=== PATIENT | female | born 1995 | race Caucasian/White ===

== ENCOUNTER 2020-01-12 13:22 | Emergency (ER) | payer OTHER ==
[~2020-01-12] VITALS: Ht 177.8 cm; Wt 81.6 kg
[2020-01-12 13:30] VITALS: BP 148/83
--- NOTE | 2020-01-12 13:41 | NUR ---
PT SEEN AND EXAMINED BY .
[2020-01-12] MEDS ORDERED: IBUPROFEN 600 MG TABLET PO ONE ×2 (14:23→14:30)
--- NOTE | 2020-01-12 14:26 | NUR ---
JEANNE BRIGGS AT BEDSIDE FOR WOUND DRESSING.
--- NOTE | 2020-01-12 14:29 | NUR ---
Patient discharged to home in stable condition. Written and verbal after care instructions given. Patient verbalizes understanding of instruction.
== END 2020-01-12 14:30 | disposition home or self-care (01) ==
LOC: ER 13:30
DX: S80.11XA Contusion of right lower leg, initial encounter (principal); W01.0XXA Fall on same level from slipping, tripping and stumbling without subsequent striking against object, initial encounter; Y93.89 Activity, other specified; Y92.89 Other specified places as the place of occurrence of the external cause; Y99.8 Other external cause status
CPT/HCPCS: 73590-TC